=== PATIENT | male | born 1985 | race Hispanic/Latino ===

== ENCOUNTER 2018-07-09 12:55 | Emergency (ER) | payer SELFPAY ==
[~2018-07-09] VITALS: Ht 172.7 cm; Wt 149.7 kg
[2018-07-09] MEDS ORDERED: VANCOMYCIN 1GM/NS 250 ML 250 ML IV STA (13:22)
[2018-07-09] MEDS ORDERED: ASPIRIN 81 MG CHEW TAB PO ONE (13:30)
[2018-07-09] MEDS ORDERED: NITROGLYCERIN 2% OINT 1 GM PKT TOP ONE (13:30)
--- OUTSIDE RECORDS SUMMARY | 2018-07-09 13:38 | XMS REPORT | Clinical Summary ---
Author Author [facility] Organization [facility] Address Unknown Phone Unavailable Care Team Providers Care Certified Genetic Counselor Name Role Phone Asked, No Pcp PCP Unavailable Allergies No Known Allergies Medications No known medications Active Problems Problem Noted Date Hypertension 11/28/2016 Morbid obesity 11/28/2016 Chest pain 11/27/2016 Chest pressure 11/23/2016 Social History Date Tobacco Use Types Packs/Day Years Used Current Every Day Smoker Cigarettes 1 Alcohol Use Drinks/Week oz/Week Comments Yes socially Sex Assigned at Date Recorded Not on file Industry Job Start Date Occupation Not on file Not on file Not on file Travel End Travel History Travel Start No recent travel history available. Last Filed Vital Signs Not on file Plan of Treatment Health Maintenance Due Date Last Done Comments INFLUENZA VACCINE 09/06/2018 Implants Device Identifier Shelf Expiration Date Model / Serial / Lot Implanted - Out of Service Type Area Manufactur er Cheek Implant Results Not on fileafter 07/08/2017 Advance Directives Patient has advance care planning documents on file. For more information, suzi chang contact: Master Watt [id number] [place] [address]
--- NOTE | 2018-07-09 14:30 | NUR ---
URINE CUP AND URINAL AT BEDSIDE. PT AWARE/NOTIFIED OF NEED FOR UA.
[2018-07-09 14:37] LABS: BASOPHILS # (AUTO) 0.1 (0.0-0.1); BASOPHILS % 0.7 % (0.0-1.0); EOSINOPHILS # (AUTO) 0.3 (0.0-0.4); EOSINOPHILS % 2.5 % (0.0-6.0); HEMATOCRIT 47.1 % (38.2-49.6); HEMOGLOBIN 15.9 g/dL (14.0-18.0); LYMPHOCYTES # (AUTO) 2.5 (1.0-3.2); LYMPHOCYTES % 23.2 % (18.0-39.1); MEAN CORPUSCULAR HEMOGLOBIN 29.7 pg (28-32); MEAN CORPUSCULAR HGB CONC 33.8 g/dL (31-35); MONOCYTES # (AUTO) 0.9 (0.2-0.8); MONOCYTES % 8.2 % (4.4-11.3); NEUTROPHILS % 64.4 % (38.7-80.0); PLATELET COUNT 389 x10e3/uL (140-360); RED BLOOD COUNT 5.35 x10e6/uL (4.3-5.7); RED CELL DISTRIBUTION WIDTH 13.2 % (11.7-14.4)
--- NOTE | 2018-07-09 14:40 | Diagnostic Imaging Report ---
EXAMINATION: CHEST SINGLE (PORTABLE) INDICATION: Swelling, chest pain. COMPARISON: None FINDINGS: Exam is somewhat limited by soft tissue attenuation. TUBES and LINES: None. LUNGS: Lungs are well inflated. There is no evidence of pneumonia or pulmonary edema. PLEURA: No pleural effusion or pneumothorax. HEART AND MEDIASTINUM: The cardiomediastinal silhouette appears mildly enlarged, likely secondary to portable AP technique. BONES AND SOFT TISSUES: No acute osseous abnormality. UPPER ABDOMEN: No free air under the diaphragm. IMPRESSION: No acute radiographic abnormality. Signed by: Dr. Rasta Posada MD on 07/09/2018 2:37 PM
[2018-07-09 14:47] LABS: INR 0.95; PROTHROMBIN TIME 13.2 seconds (11.9-14.5)
[2018-07-09 14:48] LABS: PARTIAL THROMBOPLASTIN TIME 36.5 seconds (23.8-35.5)
[2018-07-09 14:57] LABS: ALANINE AMINOTRANSFERASE 56 IU/L (0-55); ALBUMIN 3.9 g/dL (3.5-5.0); ALKALINE PHOSPHATASE 102 IU/L (40-150); BLOOD UREA NITROGEN 12 mg/dL (7-26); BUN/CREATININE RATIO 14 (6-25); CALCIUM 9.8 mg/dL (8.4-10.2); CARBON DIOXIDE 25 mmol/L (22-29); CHLORIDE 103 mmol/L (98-107); CREATINE KINASE 271 IU/L (30-200); CREATININE, SERUM 0.85 mg/dL (0.72-1.25); EST GLOMERULAR FILTRATION RATE > 60 ML/MIN (60-); GLUCOSE 93 mg/dL (74-118); SODIUM 137 mmol/L (136-145)
--- NOTE | 2018-07-09 15:53 | NUR ---
INFORMED OF NEED FOR URINE, PT STATES UNABLE TO VOID AT THIS TIME. STATES WILL "TRY LATER."
[2018-07-09 17:33] LABS: BILIRUBIN,URINE NEGATIVE (NEGATIVE); CLARITY,URINE CLEAR (CLEAR); COLOR,URINE YELLOW (YELLOW); KETONES,URINE NEGATIVE (NEGATIVE); LEUKOCYTE ESTERASE ,URINE NEGATIVE (NEGATIVE); NITRITE,URINE NEGATIVE (NEGATIVE); PROTEIN,URINE DIPSTICK NEGATIVE (NEGATIVE); URINE UROBILINOGEN 0.2 mg/dL (0.2 - 1)
[2018-07-09 17:48] LABS: WBC,URINE (MAN) 0-5 /HPF (0-5)
[2018-07-09 17:49] LABS: BACTERIA,URINE FEW /HPF; EPITHELIAL CELLS,URINE FEW /LPF; RBC,URINE 0-5 /HPF (0-5)
[2018-07-09 17:53] LABS: AMPHETAMINES SCREEN,URINE NEGATIVE (NEGATIVE); BENZODIAZEPINES SCREEN,URINE NEGATIVE (NEGATIVE); PHENCYCLIDINE SCREEN,URINE NEGATIVE (NEGATIVE)
--- NOTE | 2018-07-09 19:17 | NUR ---
REPORT TO CINDY MARINO
[2018-07-09] MEDS ORDERED: IBUPROFEN 600 MG TAB PO ONE (19:30)
[2018-07-09 20:48] VITALS: BP 132/86
--- NOTE | 2018-07-09 21:00 | NUR ---
patient at bedside awaiting discharge instructions, no shortness of breath, patient denies pain, making needs known, bilateral lower extremity edema, right foot redness, patient given all prescriptions and has no further questions.
== END 2018-07-09 21:04 | disposition home or self-care (01) ==
LOC: ER 12:55
DX: M79.662 Pain in left lower leg (principal); M79.661 Pain in right lower leg; I87.2 Venous insufficiency (chronic) (peripheral); I10 Essential (primary) hypertension
CPT/HCPCS: 36415; 71045; 80053; 80307; 81001; 82550; 82553; 83880; 84484; 85025; 85610; 85730; 87040; 93005; 93970; 99284; J3370